=== PATIENT | male | born 1980 | race Caucasian/White ===

== ENCOUNTER 2017-01-10 13:30 | Outpatient (CLI) | payer MEDICARE, MEDICAID | END 2017-01-10 13:31 | disposition home or self-care (01) | DX: G47.30 Sleep apnea, unspecified (principal); G47.8 Other sleep disorders; R06.83 Snoring; G47.10 Hypersomnia, unspecified | CPT/HCPCS: 99203; G0463 ==

== ENCOUNTER 2017-01-21 21:47 | Outpatient (CLI) | payer MEDICARE, MEDICAID | END 2017-01-21 21:48 | disposition home or self-care (01) | DX: G47.33 Obstructive sleep apnea (adult) (pediatric) (principal); G47.61 Periodic limb movement disorder; Z68.31 Body mass index [BMI] 31.0-31.9, adult ==

== ENCOUNTER 2017-01-31 13:00 | Outpatient (CLI) | payer MEDICARE, MEDICAID | END 2017-01-31 13:01 | disposition home or self-care (01) | DX: G47.33 Obstructive sleep apnea (adult) (pediatric) (principal) | CPT/HCPCS: 99213; G0463 ==

== ENCOUNTER 2017-02-08 19:40 | Outpatient (CLI) | payer MEDICARE, MEDICAID | END 2017-02-08 19:41 | disposition home or self-care (01) | DX: G47.33 Obstructive sleep apnea (adult) (pediatric) (principal); G47.61 Periodic limb movement disorder ==

== ENCOUNTER 2017-02-22 08:40 | Outpatient (CLI) | payer MEDICARE, MEDICAID | END 2017-02-22 08:41 | disposition home or self-care (01) | DX: G47.33 Obstructive sleep apnea (adult) (pediatric) (principal) | CPT/HCPCS: 99213; G0463 ==

== ENCOUNTER 2017-03-17 10:48 | Outpatient (CLI) | payer MEDICARE, MEDICAID | END 2017-03-17 10:49 | disposition home or self-care (01) | DX: G47.33 Obstructive sleep apnea (adult) (pediatric) (principal) | CPT/HCPCS: 99215; G0463 ==

== ENCOUNTER 2017-04-27 10:45 | Outpatient (CLI) | payer MEDICARE, MEDICAID | END 2017-04-27 10:46 | disposition home or self-care (01) | LOC: SC 10:45 | PROVIDERS: ATTEND Nurse Practitioner Family | DX: G47.33 Obstructive sleep apnea (adult) (pediatric) (principal) | CPT/HCPCS: 99214; G0463; 99212 ==

== ENCOUNTER 2017-08-01 09:51 | Outpatient (CLI) | payer MEDICARE, MEDICAID | END 2017-08-01 09:52 | disposition home or self-care (01) | LOC: SC 09:51 | PROVIDERS: ATTEND Nurse Practitioner Family | DX: G47.33 Obstructive sleep apnea (adult) (pediatric) (principal) | CPT/HCPCS: 99214; G0463; 99212 ==

== ENCOUNTER 2017-11-03 14:11 | Outpatient (CLI) | payer MEDICARE, MEDICAID ==
[2017-11-03 14:42] LABS: ALBUMIN/GLOBULIN RATIO 1.2 (1.0-2.2); BILIRUBIN,TOTAL 0.8 mg/dL (0.2-1.0); BUN - BLOOD UREA NITROGEN 15 mg/dL (6-20); CALCIUM 9.7 mg/dL (8.5-10.3); CARBON DIOXIDE - CO2 26 mmol/L (21-32); CHLORIDE 104 mmol/L (101-111); CREATININE 0.9 mg/dL (0.6-1.2); GFR - MDRD 94 (>89); GLUCOSE 92 mg/dL (70-100); POTASSIUM 3.8 mmol/L (3.5-5.0); SODIUM 138 mmol/L (135-145); TOTAL PROTEIN 8.4 g/dL (6.7-8.2)
== END 2017-11-03 14:12 | disposition home or self-care (01) ==
LOC: LAB.WCP 14:11
PROVIDERS: ATTEND Family Medicine
DX: G40.909 Epilepsy, unspecified, not intractable, without status epilepticus (principal); F41.9 Anxiety disorder, unspecified; R61 Generalized hyperhidrosis; R51 Headache
CPT/HCPCS: 36415; 80053; 80175; 84443

== ENCOUNTER 2018-02-28 10:12 | Outpatient (CLI) | payer MEDICARE, MEDICAID | END 2018-02-28 10:13 | disposition home or self-care (01) | LOC: SC 10:12 | PROVIDERS: ATTEND Internal Medicine Pulmonary Disease | DX: G47.33 Obstructive sleep apnea (adult) (pediatric) (principal) | CPT/HCPCS: 99213; G0463; 99212 ==

== ENCOUNTER 2018-10-17 09:17 | Outpatient (CLI) | payer MEDICARE, MEDICAID ==
[2018-10-17 12:51] LABS: CALCIUM 9.5 mg/dL (8.5-10.3); CREATININE 0.8 mg/dL (0.6-1.2)
== END 2018-10-17 23:59 | disposition home or self-care (01) ==
LOC: LAB.WCP 09:17
PROVIDERS: ATTEND Family Medicine
DX: R51 Headache (principal)
CPT/HCPCS: 36415; 80048

== ENCOUNTER 2019-01-19 08:00 | Outpatient (CLI) | payer MEDICARE, MEDICAID ==
[2019-01-19 12:58] LABS: BASOPHILS # (AUTO) 0.1 10^3/uL (0.0-0.1); BASOPHILS % (AUTO) 0.8 %; EOSINOPHILS # (AUTO) 0.3 10^3/uL (0.0-0.7); EOSINOPHILS % (AUTO) 4.5 %; HGB - HEMOGLOBIN 14.6 g/dL (14.0-18.0); LYMPHOCYTES # (AUTO) 2.4 10^3/uL (1.5-3.5); LYMPHOCYTES % (AUTO) 34.2 %; MEAN CORPUSCULAR HEMOGLOBIN 31.1 pg (27.0-31.0); MEAN CORPUSCULAR HGB CONC 33.3 g/dL (32.0-36.0); MEAN CORPUSCULAR VOLUME 93.3 fL (80.0-94.0); MEAN PLATELET VOLUME 8.6 fL (7.4-11.4); MONOCYTES # (AUTO) 0.6 10^3/uL (0.0-1.0); MONOCYTES % (AUTO) 8.4 %; NEUTROPHILS # (AUTO) 3.6 10^3/uL (1.5-6.6); NEUTROPHILS % (AUTO) 52.1 %; PLT - PLATELET COUNT 416 10^3/uL (130-450); RED BLOOD COUNT 4.71 10^6/uL (4.70-6.10); RED CELL DISTRIBUTION WIDTH 13.4 % (12.0-15.0); WHITE BLOOD COUNT 6.9 x10^3/uL (4.8-10.8)
[2019-01-19 13:14] LABS: ALBUMIN 4.2 g/dL (3.2-5.5); ALBUMIN/GLOBULIN RATIO 1.3 (1.0-2.2); ALKALINE PHOSPHATASE 45 IU/L (42-121); ALT ALANINE AMINOTRANSFERASE 39 IU/L (10-60); AST ASPARTATE AMINOTRANSFERASE 26 IU/L (10-42); BILIRUBIN,TOTAL 1.1 mg/dL (0.2-1.0); BUN - BLOOD UREA NITROGEN 14 mg/dL (6-20); CALCIUM 9.1 mg/dL (8.5-10.3); CARBON DIOXIDE - CO2 26 mmol/L (21-32); CHLORIDE 104 mmol/L (101-111); CHOLESTEROL 179 mg/dL; CREATININE 0.8 mg/dL (0.6-1.2); GFR - MDRD 108 (>89); GLUCOSE 106 mg/dL (70-100); SODIUM 140 mmol/L (135-145); TOTAL PROTEIN 7.5 g/dL (6.7-8.2)
== END 2019-01-19 23:59 | disposition home or self-care (01) ==
LOC: LAB.WCP 08:00
PROVIDERS: ATTEND Family Medicine
DX: Z00.00 Encounter for general adult medical examination without abnormal findings (principal); R56.9 Unspecified convulsions
CPT/HCPCS: 36415; 80053; 80175; 82465; 84443; 85025

== ENCOUNTER 2019-02-28 09:19 | Outpatient (CLI) | payer MEDICARE, MEDICAID | END 2019-02-28 09:20 | disposition home or self-care (01) | LOC: SC 09:19 | PROVIDERS: ATTEND Nurse Practitioner Family | DX: G47.33 Obstructive sleep apnea (adult) (pediatric) (principal); G47.00 Insomnia, unspecified | CPT/HCPCS: 99214; G0463; 99212 ==

== ENCOUNTER 2019-03-10 19:13 | Emergency (ER) | payer MEDICARE, MEDICAID ==
[2019-03-10 19:20] VITALS: BP 142/78
[2019-03-10] MEDS ORDERED: oxyCODONE 5 MG TABLET PO STA (19:30)
--- NOTE | 2019-03-10 19:32 | ED Physician Documentation ---
PD HPI UPPER EXT INJURY - Stated complaint Stated Complaint: RT ARM PX - Chief complaint Chief Complaint: Ext Problem - History obtained from History obtained from: Patient - History of Present Illness Location: Right (38-year-old gentleman who 17 years ago was equal accident with multiple orthopedic injuries as well as a head injury and craniotomies. He has hardware in the forearm on the right and a known fusion of the radius and ulna there on prior imaging. About a month ago he was doing some work around the house moving a lot of things and since then has had pain from the dorsal wrist up to the elbow especially with motion that is keeping him up at night despite taking NSAIDs. There is no specific injury or moments where he was injured, more gradual overuse kind of thing.) Review of Systems Constitutional: reports: Reviewed and negative Nose: reports: Reviewed and negative Throat: reports: Reviewed and negative PD PAST MEDICAL HISTORY - Past Medical History Psych: Post traumatic stress disorder - Past Surgical History Past Surgical History: Yes Ortho: Other - Present Medications Home Medications: Ambulatory Orders Medication Instructions Recorded Confirmed Ascorbic Acid [Vitamin C] 1 tab PO DAILY 07/28/16 03/10/19 Pnv with Ca,No.72/Iron,Carb/FA 1 tab PO DAILY 07/28/16 03/10/19 [ Plus Iron Tablet] lamoTRIgine [LaMICtal] 200 mg PO BID 07/28/16 03/10/19 Desvenlafaxine Succinate [Pristiq] 25 mg ORAL DAILY 03/10/19 03/10/19 Oxycodone HCl/Acetaminophen 1 - 2 each PO Q6H PRN #14 tablet 03/10/19 [Percocet 5-325 mg Tablet] - Allergies Allergies/Adverse Reactions: Allergies Allergy/AdvReac Type Severity Reaction Status Date / Time acetaminophen [From Vicodin] AdvReac Hallucinati Verified 03/10/19 19:20 ons hydrocodone bitartrate * AdvReac Hallucinati Verified 03/10/19 19:20 [From Vicodin] ons - Social History Does the pt smoke?: No Smoking Status: Never smoker Does the pt drink ETOH?: No Does the pt have substance abuse?: No - Immunizations Immunizations are current?: Yes PD ED PE NORMAL - Vitals Vital signs reviewed: Yes - General General: Alert and oriented X 3, No acute distress - Extremities Extremities: Other (Is really unable to pronate his wrist but he says that is chronic. Flexion extension is relatively painless. There is some tenderness along the radial side of the forearm without swelling. 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 A month ago he did some heavy labor around the house and increased pain. His examination is relatively unremarkable and his x-rays without change. He is placed in a Velcro wrist splint and given some pain medication and advised to follow-up with orthopedics if not better after a short course of watchful waiting and rest. Departure - Departure Disposition: 01 Home, Self Care Clinical Impression: Pain in extremity Qualifiers: Extremity pain location: upper extremity Laterality: right Qualified Code(s): M79.601 - Pain in right arm Condition: Good Record reviewed to determine appropriate education?: Yes Instructions: ED Sprain Wrist, ED Splint Care Velcro Follow-Up: [facility] [Provider Group] - Within 1 week Prescriptions: Oxycodone HCl/Acetaminophen [Percocet 5-325 mg Tablet] 1 - 2 each PO Q6H PRN #14 tablet PRN Reason: pain Comments: Your blood pressure was elevated today on check into the emergency department. This does not mean that you have hypertension, it is a common phenomenon to come to the emergency department and have elevated blood pressure. I recommend that you see your primary care physician within the week to have it rechecked when you are feeling better. Do not drink or drive while taking narcotic pain medication. Note that many narcotic pain relievers also contain Tylenol/acetaminophen. Please ensure that your total dose of acetaminophen from all sources does not exceed 3 g (3000 mg) per day. You may get constipated while on this medication. Take a stool softener such as Colace twice a day while you are on it. Also add an lwzo-pqa-[id number] laxative such as senna or MiraLAX on any day that you do not have a bowel movement. If you received a narcotic pain medication or sedative while in the emergency department, do not drive for the next 24 hours.
--- NOTE | 2019-03-10 20:13 | XRAY Report ---
Reason: arm pain, knwon fusion Procedure Date: 03/10/2019 Accession Number: [id number] / [id number] Procedure: XR - Forearm RT CPT Code: FULL RESULT: EXAM: RIGHT FOREARM RADIOGRAPHY EXAM DATE: 03/10/2019 07:41 PM. CLINICAL HISTORY: Arm pain, known fusion. COMPARISON: FOREARM RT 01/01/2015 11:43 AM. TECHNIQUE: 2 views. FINDINGS: Distal volar plate and screws for open reduction internal fixation of the right distal radial and ulnar diaphyseal fractures with inter-radial and ulnar osseous fusion. No evidence for loosening. No evidence for acute fracture. No acute bone findings are seen. No subluxation. No elbow joint effusion. IMPRESSION: No acute findings are seen. See above. RADIA
== END 2019-03-10 20:36 | disposition home or self-care (01) ==
LOC: ED 19:13
DX: M79.601 Pain in right arm (principal)
CPT/HCPCS: 73090; 99283; A9270

== ENCOUNTER 2020-05-05 15:19 | Outpatient (CLI) | payer MEDICARE, MEDICAID ==
--- NOTE | 2020-05-05 15:53 | SLEEP CARE CONSULTATION ---
Information from patient questionnaire entered by Isaura Fortune. I have reviewed and concur with the information entered by Isaura Fortune. This document represents the service I personally performed and the decisions made by me, Basilia Garcia, RN, MSN, INFORMATION SERVICES TECH. History of Present Illness Service Date and Time: 05/05/2020 1519 Previous diagnosis: Severe, Obstructive Sleep Apnea-Hypopnea Syndrome AHI: 33.3 (in 2017) Reason for follow up: annual (last seen 2018) Equipment type: CPAP Equipment obtained from: [employer] (having difficulty getting correct supplies / his mother tried ordering today/ no transfer at this time.) Mask style: Nasal pillows Mask brand: Respironics Backup mask available: No (keep current mask when replaced for spare ) Last cushion change: a month ago Prior sleep studies: Yes Year and Where: 2016 - [facility] Type of Sleep Study: Polysomnography HPI additional information: Increase in headaches , CT completed and sees Dr Garber May 21. CPAP Compliance Data - Data Reviewed with Patient Average duration of nightly device use: 6.2 Compliance rate %: 70 (180 days) Current pressure setting (cmH2O): 13-15 Humidity settin Heated hose settin Average residual AHI: 3.0 Average large leak: 3 min 19 sec Subjective Patient concerns: reports: air blowing in eyes, nasal congestion (nasal congestion for first hour of waking only. no interferring with CPAP / uses saline spray prior to CPAP ), dry mouth, nose, throat (24/7 not worse with CPAP. Uses oral dryness spray from dentist/ ), epistaxis (none as long as he uses the humidifier with water. ). denies: aerophagia, mask discomfort (headgear 8 months / occasional / repositions headgear. ), mask leak noise, condensation in mask/hose Observed to snore while using device: No Current pressure setting perceived as: comfortable On therapy, patient: reports: sleeping better, awakening more refreshed, being more awake and alert during the day, more rested overall. denies: drowsiness while driving Initial [place] Sleepiness Scale score: 13 (in 2017) Current [place] Sleepiness Scale score: 14 Allergies and Home Medications Home medication list reviewed: No (bupropion 450mg daily replaced the prestiq. ) Review of Systems Review of systems same as previous: No (Removal ulnar hardware due to swelling and resolved/ gum grafting done ) Physical Exam Blood Pressure: 114/68 Cuff size: long Heart Rate: 102 O2 Saturation: 98 Height: 6 ft 1 in Weight: 230 lb (lost 45 pounds) Body Mass Index: 30.3 BMI Classification: Obese Impression and Plan 1. Obstructive Sleep Apnea-Hypopnea Syndrome, severe, with good treatment compliance and good apnea control. On CPAP therapy, the patient has better sleep quality and is more rested overall. Rare condensation in hose so a heated hose will be ordered to use as needed to reduce condensation. Humidity is at maximum for oral dryness and he is working with dentist on treatment. His oral dryness is 24/7 from seizure medications. His epitaxis has resolved with use of nightly humidity. If continued problems getting correct supplies, he can transfer to another company and my staff will inform him of choices and I will make a prescription if needed. This has to be done within 6 months of being seen. He is hoping this last order will be correct that was completed by his mother. Since he is losing more weight, I discussed how continued weight loss can reduce his apnea and his CPAP pressure. Symptoms to report discussed for CPAP pressure adjustment. Patient's apnea severity and rationale for treatment to reduce apnea, improve sleep quality and reduce cardiovascular and cerebrovascular events was reviewed. * Continue auto CPAP pressure at 13-15 cmH2O * heated hose * Notify me if snoring with mask or feeling that the pressure is too much or too little * Attempt to lose weight * Call this office if any problems using CPAP * Return for follow up in 1 year , or sooner if concerns arise Visit Type: In Office Provider Statement: I spent 100% of the Face to Face Visit with the patient with greater than 50% spent counseling the patient and coordination of care.
[2020-05-05 15:54] VITALS: BP 114/68
== END 2020-05-05 15:20 | disposition home or self-care (01) ==
LOC: SC 15:19
PROVIDERS: ATTEND Nurse Practitioner Family
DX: G47.33 Obstructive sleep apnea (adult) (pediatric) (principal); E66.9 Obesity, unspecified; Z68.30 Body mass index [BMI] 30.0-30.9, adult
CPT/HCPCS: 99214; G0463; 99212

== ENCOUNTER 2020-06-30 08:00 | Outpatient (CLI) | payer MEDICARE, MEDICAID ==
[2020-06-30 12:10] LABS: BASOPHILS # (AUTO) 0.1 10^3/uL (0.0-0.1); BASOPHILS % (AUTO) 0.7 %; EOSINOPHILS # (AUTO) 0.3 10^3/uL (0.0-0.7); EOSINOPHILS % (AUTO) 3.2 %; HGB - HEMOGLOBIN 15.1 g/dL (14.0-18.0); LYMPHOCYTES # (AUTO) 2.9 10^3/uL (1.5-3.5); LYMPHOCYTES % (AUTO) 36.3 %; MEAN CORPUSCULAR HEMOGLOBIN 32.1 pg (27.0-31.0); MEAN CORPUSCULAR HGB CONC 33.6 g/dL (32.0-36.0); MEAN CORPUSCULAR VOLUME 95.3 fL (80.0-94.0); MEAN PLATELET VOLUME 9.9 fL (7.4-11.4); MONOCYTES # (AUTO) 0.7 10^3/uL (0.0-1.0); MONOCYTES % (AUTO) 8.4 %; NEUTROPHILS # (AUTO) 4.1 10^3/uL (1.5-6.6); PLT - PLATELET COUNT 397 10^3/uL (130-450); RED BLOOD COUNT 4.71 10^6/uL (4.70-6.10); RED CELL DISTRIBUTION WIDTH 12.7 % (12.0-15.0); WHITE BLOOD COUNT 8.1 x10^3/uL (4.8-10.8)
[2020-06-30 12:50] LABS: ALBUMIN 4.7 g/dL (3.2-5.5); ALBUMIN/GLOBULIN RATIO 1.7 (1.0-2.2); ALKALINE PHOSPHATASE 40 IU/L (42-121); ALT ALANINE AMINOTRANSFERASE 34 IU/L (10-60); AST ASPARTATE AMINOTRANSFERASE 20 IU/L (10-42); BUN - BLOOD UREA NITROGEN 12 mg/dL (6-20); CALCIUM 9.7 mg/dL (8.5-10.3); CARBON DIOXIDE - CO2 28 mmol/L (21-32); CHLORIDE 103 mmol/L (101-111); CHOL/HDL RATIO 5.7 (<5.0); CHOLESTEROL 193 mg/dL; GLUCOSE 96 mg/dL (70-100); HDL CHOLESTEROL 34 mg/dL; LDL CHOLESTEROL,CALCULATED 125 mg/dL; LDL/HDL RATIO 3.7 (<3.6); SODIUM 140 mmol/L (135-145); TOTAL PROTEIN 7.5 g/dL (6.7-8.2); VLDL CHOLESTEROL 34 mg/dL
== END 2020-06-30 23:59 | disposition home or self-care (01) ==
LOC: LAB.WCP 08:00
PROVIDERS: ATTEND Family Medicine
DX: R42 Dizziness and giddiness (principal); E66.9 Obesity, unspecified; F41.9 Anxiety disorder, unspecified; G43.909 Migraine, unspecified, not intractable, without status migrainosus
CPT/HCPCS: 36415; 80053; 80061; 83721; 84443; 85025

== ENCOUNTER 2020-11-27 07:58 | Outpatient (CLI) | payer MEDICARE, MEDICAID ==
--- NOTE | 2020-11-27 08:55 | SLEEP CARE CONSULTATION ---
Information from patient questionnaire entered by Isaura Fortune. I have reviewed and concur with the information entered by Isaura Fortune. This document represents the service I personally performed and the decisions made by me, Talisha Oneill ARNP. History of Present Illness Service Date and Time: 11/27/2020 0758 Previous diagnosis: Severe, Obstructive Sleep Apnea-Hypopnea Syndrome AHI: 33.3 (in 2017) Reason for follow up: other (7 month) Equipment type: CPAP Equipment obtained from: [employer] (gets supplies but gets broken items that are replaced right away) Mask style: Nasal pillows (Nuance) Backup mask available: No (will keep mask once replacement recieved) Last cushion change: 2 weeks Prior sleep studies: Yes Year and Where: 2017 - [facility] HPI additional information: ALEJANDRA DON was diagnosed to have severe, AHI 33.3, obstructive sleep apnea- hypopnea syndrome and returned today for CPAP therapy seven month (mask issues) follow-up. CPAP Compliance Data - Data Reviewed with Patient Average duration of nightly device use: 5 hr 37 min Compliance rate %: 47.8 (180 days) Current pressure setting (cmH2O): 11-15 Humidity settin Heated hose settin Average residual AHI: 3.2 Average large leak: 5 min 52 sec Subjective Missed days of use due to: reports: mask issues, other (surgery on right foot) Patient concerns: reports: mask discomfort, air blowing in eyes, mask leak noise, dry mouth, nose, throat (from medication he takes). denies: aerophagia (comfortable but leaking), condensation in mask/hose, nasal congestion, epistaxis (none for last 5 months), other Observed to snore while using device: No Current pressure setting perceived as: comfortable On therapy, patient: reports: sleeping better, awakening more refreshed, being more awake and alert during the day, more rested overall. denies: drowsiness while driving Initial [place] Sleepiness Scale score: 13 (in 2017) Current [place] Sleepiness Scale score: 8 Allergies and Home Medications Drug allergies reviewed: Yes (acetaminophen, hydrocodone ) Home medication list reviewed: Yes (stopped bupropion) Review of Systems Review of systems same as previous: Yes (no changes) Physical Exam Heart Rate: 103 O2 Saturation: 99 Height: 6 ft 1 in Weight: 228 lb Weight change since last visit: 2 lb loss Body Mass Index: 30.0 BMI Classification: Obese Impression and Plan 1. Obstructive Sleep Apnea-Hypopnea Syndrome, severe, with poor treatment compliance and good apnea control. On CPAP therapy, the patient has better sleep quality and is more rested overall. He has been having issues with the nasal pillows mask moving around on face causing air leaking into eyes and mask leak noises. He states he moves a lot when he sleeps and the pillow become dislodged. He states it has been this way since he lost some significant weight but was unable to come in to discuss issue because he had surgery with long recovery on his foot. He states he used to use the Wisp style mask, small, but stopped when he got some skin irritation on the top of his nose. He thinks he slept much better and was more able to keep the mask on than the nasal pillows mask he has been using. I will write for him to try the nasal Wisp style mask again. He states that he stopped the heated hose that was recommended at last visit bec ause he was getting bloody noses regularly. He states that with the change to the regular hose he does not get any bloody noses and oral dryness has improved. He has not used it for the last 5 months. I will have him continue with current settings since they are working well without condensation buildup. I will have him follow up in about 2 months to recheck compliance and how the new mask is working. Patient voiced understanding and agreement for plan. Patient's apnea severity and rationale for treatment to reduce apnea, improve sleep quality and reduce cardiovascular and cerebrovascular events was reviewed. I also reviewed the benefit of consistent device use of CPAP for depression. * Continue auto CPAP pressure at 13-15 cmH2O * Change to Dream Wisp mask and update supplies * Notify me if snoring with mask or feeling that the pressure is too much or too little * Continue to lose weight * Call this office if any problems using CPAP * Return for follow up in 1-2 months , or sooner if concerns arise Counseling Topics: Spare mask, Weight loss health impact Visit Type: In Office Time Spent with Patient (minutes): 29 Provider Statement: I spent 100% of the Face to Face Visit with the patient with greater than 50% spent counseling the patient and coordination of care.
== END 2020-11-27 07:59 | disposition home or self-care (01) ==
LOC: SC 07:58
PROVIDERS: ATTEND Nurse Practitioner Family
DX: G47.33 Obstructive sleep apnea (adult) (pediatric) (principal); E66.9 Obesity, unspecified; Z68.30 Body mass index [BMI] 30.0-30.9, adult
CPT/HCPCS: 99213; G0463; 99212

== ENCOUNTER 2021-05-13 10:12 | Outpatient (CLI) | payer MEDICARE, MEDICAID ==
--- NOTE | 2021-05-13 11:06 | SLEEP CARE CONSULTATION ---
Information from patient questionnaire entered by Isaura Fortune. I have reviewed and concur with the information entered by Isaura Fortune. This document represents the service I personally performed and the decisions made by , Talisha Oneill ARNP. History of Present Illness Service Date and Time: 05/13/2021 1012 Previous diagnosis: Severe, Obstructive Sleep Apnea-Hypopnea Syndrome AHI: 33.3 (in 2017) Reason for follow up: other (5 month) Equipment type: CPAP Equipment obtained from: [employer] (getting supplies as needed) Mask style: Nasal pillows Mask brand: Respironics (Nuance) Backup mask available: No (will keep old mask when replaced) Last cushion change: 2 weeks ago Prior sleep studies: Yes Year and Where: 2017 - [facility] HPI additional information: ALEJANDRA DON was diagnosed to have severe, AHI 33.3, obstructive sleep apnea- hypopnea syndrome and returned today for CPAP therapy five month follow-up. CPAP Compliance Data - Data Reviewed with Patient Average duration of nightly device use: 4 hr 8 min Compliance rate %: 8.7 (150 days) Current pressure setting (cmH2O): 11-15 Humidity settin Heated hose settin Average residual AHI: 3.7 Average large leak: 1 min 21 sec Subjective Missed days of use due to: reports: mask issues, illness, travel Patient concerns: reports: mask discomfort, air blowing in eyes, mask leak noise, condensation in mask/hose, nasal congestion, dry mouth, nose, throat, epistaxis, other (headache). denies: aerophagia Observed to snore while using device: No Current pressure setting perceived as: comfortable On therapy, patient: reports: sleeping better, awakening more refreshed, being more awake and alert during the day, more rested overall. denies: drowsiness while driving Initial [place] Sleepiness Scale score: 13 (in 2017) Current [place] Sleepiness Scale score: 12 Allergies and Home Medications Home medication list reviewed: Yes Allergy and home medication list: Cymbalta Gabapentin Review of Systems Review of systems same as previous: Yes (no changes) Physical Exam O2 Saturation: 98 Height: 6 ft 1 in Weight: 237 lb Body Mass Index: 31.2 BMI Classification: Obese Impression and Plan 1. Obstructive Sleep Apnea-Hypopnea Syndrome, severe, with poor treatment compliance and good apnea control. On CPAP therapy, the patient has better sleep quality and is more rested overall. He tried an over the nose Wisp style mask but it caused soreness on the bridge of his nose. He is back using a nasal cushion mask the Nuance that he still gets some air leaking into his eyes. He is partially blind and has other eye issues and does not want to have anymore. He asked for suggestion and after review I think he would do well with a ResMed N30. He will call his DME and order this style mask to see if it will work for him. I also discussed with him the [employer] recall and he wishes to continue use of his CPAP machine and will put his machine on a [employer] website to see if he is machine is on the recall. Patient compliance has been reduced due to mask issues. Compliance guidelines reviewed for insurance coverage. Patient was counseled on the difference between meeting compliance and optimal use of CPAP. Optimal use of CPAP is use of CPAP with all sleep to obtain maximum benefit of treatment. Patient is encouraged to use CPAP with all sleep. Patient's apnea severity and rationale for treatment to reduce apnea, improve sleep quality and reduce cardiovascular and cerebrovascular events was reviewed. * Continue auto CPAP pressure at 11-15 cmH2O * Try ResMed N 30 mask * Notify me if snoring with mask or feeling that the pressure is too much or too little * Attempt to lose weight * Call this office if any problems using CPAP * Return for follow up in 1-2 months, or sooner if concerns arise Counseling Topics: Spare mask, Weight loss health impact Visit Type: In Office Time Spent with Patient (minutes): 29 Provider Statement: I spent 100% of the Face to Face Visit with the patient with greater than 50% spent counseling the patient and coordination of care.
== END 2021-05-13 10:13 | disposition home or self-care (01) ==
LOC: SC 10:12
PROVIDERS: ATTEND Nurse Practitioner Family
DX: G47.33 Obstructive sleep apnea (adult) (pediatric) (principal); E66.9 Obesity, unspecified; Z68.31 Body mass index [BMI] 31.0-31.9, adult
CPT/HCPCS: 99213; G0463; 99212

== ENCOUNTER 2021-07-15 07:52 | Outpatient (CLI) | payer MEDICARE, MEDICAID ==
--- NOTE | 2021-07-15 08:28 | SLEEP CARE CONSULTATION ---
Information from patient questionnaire entered by Isaura Fortune. I have reviewed and concur with the information entered by Isaura Fortune. This document represents the service I personally performed and the decisions made by , Talisha Oneill ARNP. History of Present Illness Service Date and Time: 07/15/2021 0752 Previous diagnosis: Severe, Obstructive Sleep Apnea-Hypopnea Syndrome AHI: 33.3 (in 2017) Reason for follow up: other (2 month) Equipment type: CPAP Equipment obtained from: [employer] (getting supplies as needed) Mask style: Nasal (Airfit N30i) Mask brand: Resmed Backup mask available: Yes (other mask) Last cushion change: 1 month Prior sleep studies: Yes Year and Where: 2017 - [facility] HPI additional information: ALEJANDRA DON was diagnosed to have severe, AHI 33.3, obstructive sleep apnea- hypopnea syndrome and returned today for CPAP therapy two month follow-up. CPAP Compliance Data - Data Reviewed with Patient Average duration of nightly device use: 4 hr 2 min Compliance rate %: 20 Current pressure setting (cmH2O): 11-15 Humidity settin Heated hose settin Average residual AHI: 3.4 Average large leak: 2 min 12 sec Subjective Missed days of use due to: reports: other (not knowing how to use mask) Patient concerns: reports: air blowing in eyes, mask leak noise, dry mouth, nose, throat (chronic dryness from seizure medication). denies: aerophagia, mask discomfort, condensation in mask/hose, nasal congestion, epistaxis, other Observed to snore while using device: No Current pressure setting perceived as: comfortable On therapy, patient: reports: sleeping better, awakening more refreshed, being more awake and alert during the day, more rested overall. denies: drowsiness while driving Initial [place] Sleepiness Scale score: 13 (in 2017) Current [place] Sleepiness Scale score: 8 Allergies and Home Medications Home medication list reviewed: Yes (no changes) Review of Systems Review of systems same as previous: Yes (no changes) Physical Exam Vital signs obtained and entered by: steve Heart Rate: 84 O2 Saturation: 99 Height: 6 ft 1 in Weight: 241 lb Body Mass Index: 31.8 BMI Classification: Obese Impression and Plan 1. Obstructive Sleep Apnea-Hypopnea Syndrome, severe, with poor treatment compliance and god apnea control. On CPAP therapy, the patient has better sleep quality and is more rested overall. Patient's compliance has come up over 10% since his last visit. He received his new AirFit N 30i mask and has been trying to figure out how to use it. 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 He states he finally figured out how to wear the mask appropriately and he feels the small size fits the best with less leaking into his eyes. His compliance in the last 60 days was 10% and 20% in last 30 days. Compliance guidelines reviewed for insurance coverage. Patient was counseled on the difference between meeting compliance and optimal use of CPAP. Optimal use of CPAP is use of CPAP with all sleep to obtain maximum benefit of treatment. Patient is encouraged to use CPAP with all sleep. Patient was encouraged to lose weight for their overall health and to reduce apneas. Patient's apnea severity and rationale for treatment to reduce apnea, improve sleep quality and reduce cardiovascular and cerebrovascular events was reviewed. * Continue auto CPAP pressure at 11-15 cmH2O * Notify me if snoring with mask or feeling that the pressure is too much or too little * Attempt to lose weight * Call this office if any problems using CPAP * Return for follow up in 1-2 months to recheck compliance, or sooner if concerns arise Counseling Topics: Spare mask, Weight loss health impact Visit Type: In Office Time Spent with Patient (minutes): 24 Provider Statement: I spent 100% of the Face to Face Visit with the patient with greater than 50% spent counseling the patient and coordination of care.
== END 2021-07-15 07:53 | disposition home or self-care (01) ==
LOC: SC 07:52
PROVIDERS: ATTEND Nurse Practitioner Family
DX: G47.33 Obstructive sleep apnea (adult) (pediatric) (principal); E66.9 Obesity, unspecified; Z68.31 Body mass index [BMI] 31.0-31.9, adult
CPT/HCPCS: 99213; G0463; 99212

== ENCOUNTER 2021-08-25 07:11 | Outpatient (CLI) | payer MEDICARE, MEDICAID ==
[2021-08-25 12:13] LABS: BASOPHILS # (AUTO) 0.1 10^3/uL (0.0-0.1); BASOPHILS % (AUTO) 0.9 %; EOSINOPHILS # (AUTO) 0.5 10^3/uL (0.0-0.7); EOSINOPHILS % (AUTO) 5.9 %; HGB - HEMOGLOBIN 15.4 g/dL (14.0-18.0); LYMPHOCYTES # (AUTO) 3.4 10^3/uL (1.5-3.5); MEAN CORPUSCULAR HEMOGLOBIN 31.2 pg (27.0-31.0); MEAN CORPUSCULAR HGB CONC 32.8 g/dL (32.0-36.0); MEAN CORPUSCULAR VOLUME 95.3 fL (80.0-94.0); MEAN PLATELET VOLUME 10.2 fL (7.4-11.4); MONOCYTES # (AUTO) 0.8 10^3/uL (0.0-1.0); NEUTROPHILS # (AUTO) 3.4 10^3/uL (1.5-6.6); NEUTROPHILS % (AUTO) 41.1 %; PLT - PLATELET COUNT 446 10^3/uL (130-450); RED BLOOD COUNT 4.93 10^6/uL (4.70-6.10); RED CELL DISTRIBUTION WIDTH 13.1 % (12.0-15.0); WHITE BLOOD COUNT 8.2 x10^3/uL (4.8-10.8)
[2021-08-25 12:38] LABS: THYROID STIMULATING HORMONE 1.26 uIU/mL (0.34-5.60)
[2021-08-25 13:06] LABS: ALBUMIN 4.2 g/dL (3.2-5.5); ALBUMIN/GLOBULIN RATIO 1.1 (1.0-2.2); ALKALINE PHOSPHATASE 42 IU/L (42-121); ALT ALANINE AMINOTRANSFERASE 44 IU/L (10-60); AST ASPARTATE AMINOTRANSFERASE 22 IU/L (10-42); BILIRUBIN,TOTAL 0.9 mg/dL (0.2-1.0); BUN - BLOOD UREA NITROGEN 13 mg/dL (6-20); CHOL/HDL RATIO 6.5 (<5.0); CHOLESTEROL 227 mg/dL; CREATININE 0.9 mg/dL (0.6-1.2); GFR - MDRD 93 (>89); HDL CHOLESTEROL 35 mg/dL; LDL CHOLESTEROL,CALCULATED 144 mg/dL; LDL/HDL RATIO 4.1 (<3.6); TOTAL PROTEIN 7.9 g/dL (6.7-8.2); TRIGLYCERIDES 240 mg/dL; VLDL CHOLESTEROL 48 mg/dL
[2021-08-25 13:08] LABS: CALCIUM 9.7 mg/dL (8.5-10.3); CARBON DIOXIDE - CO2 25 mmol/L (21-32); CHLORIDE 107 mmol/L (101-111); GLUCOSE 104 mg/dL (70-100); POTASSIUM 3.9 mmol/L (3.5-5.0)
[2021-08-25 13:16] LABS: SODIUM 142 mmol/L (135-145)
== END 2021-08-25 23:59 | disposition home or self-care (01) ==
LOC: LAB.WCP 07:11
PROVIDERS: ATTEND Physician Assistant Medical
DX: Z00.00 Encounter for general adult medical examination without abnormal findings (principal); G40.909 Epilepsy, unspecified, not intractable, without status epilepticus; F32.9 Major depressive disorder, single episode, unspecified
CPT/HCPCS: 36415; 80053; 80061; 80175; 83721; 84443; 85025

== ENCOUNTER 2021-08-26 08:56 | Outpatient (CLI) | payer MEDICARE, MEDICAID ==
[2021-08-26 09:36] VITALS: BP 124/79
--- NOTE | 2021-08-26 09:36 | SLEEP CARE CONSULTATION ---
Information from patient questionnaire entered by Megan Bedolla. I have reviewed and concur with the information entered by Megan Bedolla. This document represents the service I personally performed and the decisions made by me, Talisha Oneill ARNP. History of Present Illness Service Date and Time: 08/26/2021 0856 Previous diagnosis: Severe, Obstructive Sleep Apnea-Hypopnea Syndrome AHI: 33.3 (in 2017) Reason for follow up: other (6 week) Equipment type: CPAP Equipment obtained from: [employer] (getting supplies as needed) Mask style: Nasal pillows (N30 mask but prefers the Nuance) Backup mask available: Yes (other mask) Last cushion change: not sure Prior sleep studies: Yes Year and Where: 2016 - [facility] HPI additional information: ALEJANDRA DON was diagnosed to have severe, AHI 33.3, obstructive sleep apnea- hypopnea syndrome and returned today for CPAP therapy 6 weeks follow-up. Sleep Study - Results Prior sleep studies: Yes Year and Where: 2017 - [facility] Compliance Data - Data Reviewed with Patient Average duration of nightly device use: 3 hours 56 minutes Compliance rate %: 16.7 Current pressure setting (cmH2O): 11-15 Humidity settin Heated hose settin Average residual AHI: 6.1 Average large leak: 22 seconds Subjective Missed days of use due to: reports: family emergency, mask issues, travel Patient concerns: reports: air blowing in eyes, mask leak noise, condensation in mask/hose (now using a heated hose), dry mouth, nose, throat (dry mouth, thinks it is from the Lamictal, always has dry mouth), other (headache). denies: aerophagia, mask discomfort, nasal congestion, epistaxis Observed to snore while using device: No Current pressure setting perceived as: comfortable On therapy, patient: reports: sleeping better, awakening more refreshed, being more awake and alert during the day, more rested overall. denies: drowsiness while driving Initial [place] Sleepiness Scale score: 13 (in 2017) Current [place] Sleepiness Scale score: 12 Allergies and Home Medications Home medication list reviewed: Yes (Topiramate for headaches, makes things taste funny) Review of Systems Review of systems same as previous: Yes (no changes) Physical Exam Blood Pressure: 124/79 Cuff size: wrist Heart Rate: 91 O2 Saturation: 98 Height: 6 ft 1 in Weight: 240 lb Weight change since last visit: 1 lb loss Body Mass Index: 31.6 BMI Classification: Obese Impression and Plan 1. Obstructive Sleep Apnea-Hypopnea Syndrome, severe, with poor treatment compliance and fair apnea control with mild elevation of residual AHI. On CPAP therapy, the patient has better sleep quality and is more rested overall. Patient states he watch TV at night and many times will fall asleep because he does watch TV in his bed. Other nights he has difficulty wearing the mask due to his anxieties or he will wake up finding that the mask is not on his face anymore. He had one night that it woke him up from a rattle sound from condensation in the tubing. He got a heated tubing hose on recommendation of his mother and states the sound has gone away. This incident did affect his ability to use the mask because it reminded him of a rattle that he heard when his grandfather . Compliance guidelines reviewed for insurance coverage. A handout will be given at check out. Patient was counseled on the difference between meeting compliance and optimal use of CPAP. Optimal use of CPAP is use of CPAP with all sleep to obtain maximum benefit of treatment. Patient is encouraged to use CPAP with all sleep. To prevent falling asleep without CPAP, patient advised to put on the mask when laying down in bed so he will not forget to put the mask on to sleep. Patient has lost a pound since his last visit. He states he broke up with his girlfriend who used to cook very good tasting meals and is starting to lose weight again. Patient was encouraged to lose weight for their overall health and to reduce apneas. Patient's apnea severity and rationale for treatment to reduce apnea, improve sleep quality and reduce cardiovascular and cerebrovascular events was reviewed. * Continue auto CPAP pressure at 11-15 cmH2O * Notify me if snoring with mask or feeling that the pressure is too much or too little * Attempt to lose weight * Call this office if any problems using CPAP * Return for follow up in 1-2 months, or sooner if concerns arise Counseling Topics: Spare mask, Weight loss health impact Visit Type: In Office Time Spent with Patient (minutes): 25 Provider Statement: I spent 100% of the Face to Face Visit with the patient with greater than 50% spent counseling the patient and coordination of care.
== END 2021-08-26 08:57 | disposition home or self-care (01) ==
LOC: SC 08:56
PROVIDERS: ATTEND Nurse Practitioner Family
DX: G47.33 Obstructive sleep apnea (adult) (pediatric) (principal); E66.9 Obesity, unspecified; Z68.31 Body mass index [BMI] 31.0-31.9, adult
CPT/HCPCS: 99213; G0463; 99212

== ENCOUNTER 2021-10-28 08:21 | Outpatient (CLI) | payer MEDICARE, MEDICAID ==
[2021-10-28 09:10] VITALS: BP 134/76
--- NOTE | 2021-10-28 09:11 | SLEEP CARE CONSULTATION ---
Information from patient questionnaire entered by Pooja Rosario MA. I have reviewed and concur with the information entered by Pooja Rosario MA. This document represents the service I personally performed and the decisions made by , Talisha Oneill ARNP. History of Present Illness Service Date and Time: 10/28/2021 08 Previous diagnosis: Severe, Obstructive Sleep Apnea-Hypopnea Syndrome AHI: 33.3 (in 2017) Reason for follow up: other (6 WEEK F/U ) Equipment type: CPAP Equipment obtained from: [employer] (getting supplies as needed) Mask style: Nasal pillows (N30 mask with small cushion) Backup mask available: No (will need to keep old mask when replaced) Last cushion change: 1 month Prior sleep studies: Yes Year and Where: 2016 [facility] HPI additional information: ALEJANDRA DON was diagnosed to have severe, AHI 33.3, obstructive sleep apnea- hypopnea syndrome and returned today for CPAP therapy 6 week with pressure change follow-up. Sleep Study - Results Prior sleep studies: Yes Year and Where: 2017 [facility] Compliance Data - Data Reviewed with Patient Average duration of nightly device use: 5 hours 37 minutes Compliance rate %: 66.7 Current pressure setting (cmH2O): 13-15 Humidity settin Heated hose settin Average residual AHI: 2.6 Average large leak: 2 mins 57 secs Subjective Missed days of use due to: reports: family emergency, illness, other (FALL ASLEEP EARLY) Patient concerns: denies: aerophagia, mask discomfort, air blowing in eyes, mask leak noise, condensation in mask/hose, nasal congestion, dry mouth, nose, throat, epistaxis, other Observed to snore while using device: No Current pressure setting perceived as: comfortable On therapy, patient: reports: sleeping better, awakening more refreshed, being more awake and alert during the day, more rested overall. denies: drowsiness while driving Initial [place] Sleepiness Scale score: 13 (in 2016) Current [place] Sleepiness Scale score: 8 (2020) Allergies and Home Medications Known drug allergies: Yes (VICADEN) Home medication list reviewed: Yes (Mirtazepine for nightmares for last month) Review of Systems Review of systems same as previous: Yes (no changes) Physical Exam Vital signs obtained and entered by: Jaime ROSARIO CMA, AAMA Blood Pressure: 134/76 (left) Cuff size: wrist Heart Rate: 95 O2 Saturation: 100 (with mask) Height: 6 ft 1 in Weight: 248 lb (with clothes) Weight change since last visit: 8 pound gain Body Mass Index: 32.7 BMI Classification: Obese Impression and Plan 1. Obstructive Sleep Apnea-Hypopnea Syndrome, severe, with fair treatment compliance and good apnea control. On CPAP therapy, the patient has better sleep quality and is more rested overall. Patient is happy with his N30 nasal mask. He states it is comfortable. He started a new medication about a month ago that helps him fall asleep and will occasionally fall asleep before he puts on the mask. He was advised to put on the mask soon after taking his mirtazepine and laying down so he will not forget. He voiced understanding. He is happy with current pressure and has significant improvement of his apneas. Patient's apnea severity and rationale for treatment to reduce apnea, improve sleep quality and reduce cardiovascular and cerebrovascular events was reviewed. Patient has gained weight. He states this is due to his fiance's good cooking. Currently patients BMI is 32.7. Obesity increases the risk of apnea, CPAP pressure requirements and overall health risks especially cardiovascular and diabetes. Patient was encouraged to lose weight for their overall health and to reduce apneas. * Continue auto CPAP pressure at 13-15 cmH2O * Notify me if snoring with mask or feeling that the pressure is too much or too little * Attempt to lose weight * Call this office if any problems using CPAP * Return for follow up in 3 months, or sooner if concerns arise Counseling Topics: Spare mask, Weight loss health impact Visit Type: In Office Time Spent with Patient (minutes): 21 Provider Statement: I spent 100% of the Face to Face Visit with the patient with greater than 50% spent counseling the patient and coordination of care.
== END 2021-10-28 08:22 | disposition home or self-care (01) ==
LOC: SC 08:21
PROVIDERS: ATTEND Nurse Practitioner Family
DX: G47.33 Obstructive sleep apnea (adult) (pediatric) (principal); E66.9 Obesity, unspecified; Z68.32 Body mass index [BMI] 32.0-32.9, adult
CPT/HCPCS: 99213; G0463; 99212

== ENCOUNTER 2022-02-03 09:16 | Outpatient (CLI) | payer MEDICARE, MEDICAID ==
--- NOTE | 2022-02-03 10:00 | SLEEP CARE CONSULTATION ---
Information from patient questionnaire entered by Pooja Senior MA. I have reviewed and concur with the information entered by Pooja Senior MA. This document represents the service I personally performed and the decisions made by , Talisha Oneill ARNP. History of Present Illness Service Date and Time: 02/03/2022 0916 Previous diagnosis: Severe, Obstructive Sleep Apnea-Hypopnea Syndrome AHI: 33.3 (in 2017) Reason for follow up: three month Equipment type: CPAP Equipment obtained from: [employer] (getting supplies as needed) Mask style: Nasal pillows (N30 mask but prefers the Nuance) Backup mask available: No (will need to keep old mask when replaced) Last cushion change: 2 weeks ago Prior sleep studies: Yes Year and Where: 2016 - [facility] Type of Sleep Study: Home sleep study HPI additional information: ALEJANDRA DON was diagnosed to have severe, AHI 33.3, obstructive sleep apnea- hypopnea syndrome and returned today for CPAP therapy three month follow-up. Sleep Study - Results Prior sleep studies: Yes Year and Where: 2016 - [facility] Compliance Data - Data Reviewed with Patient Average duration of nightly device use: 6 hours 3 minutes Compliance rate %: 46.7 Current pressure setting (cmH2O): 11-15 Humidity settin Heated hose settin Average residual AHI: 4.2 Average large leak: 9 minutes 46 seconds Subjective Missed days of use due to: reports: other (not sleeping) Patient concerns: reports: other (older Dreamstation not working; now has Dreamstation 2 x 1 week). denies: aerophagia, mask discomfort, air blowing in eyes, mask leak noise, condensation in mask/hose, nasal congestion, dry mouth, nose, throat, epistaxis Observed to snore while using device: No Current pressure setting perceived as: comfortable On therapy, patient: reports: sleeping better, awakening more refreshed, being more awake and alert during the day, more rested overall. denies: drowsiness while driving Initial [place] Sleepiness Scale score: 13 (in 2017) Current [place] Sleepiness Scale score: 10 Allergies and Home Medications Home medication list reviewed: Yes (Mirtazepine started 4 months ago for night palm) Allergy and home medication list: Allergies acetaminophen [From Vicodin] Adverse Reaction (Verified 03/10/19 19:20) Hallucinations hydrocodone bitartrate * [From Vicodin] Adverse Reaction (Verified 03/10/19 19:20) Hallucinations New medications: Prazosin 2 mg Mirtazepine 60 mg Review of Systems Review of systems same as previous: Yes (no changes) Physical Exam Vital signs obtained and entered by: Jaime SENIOR CMA AASHAY Blood Pressure: 128/80 (RIGHT, PULSE 100, RESP 18,) Cuff size: wrist Heart Rate: 101 O2 Saturation: 99 (PAPER) Height: 6 ft 1 in Weight: 260 lb Body Mass Index: 34.2 BMI Classification: Obese Impression and Plan 1. Obstructive Sleep Apnea-Hypopnea Syndrome, severe, with poor treatment compliance and good apnea control. On CPAP therapy, the patient has better sleep quality and is more rested overall. Patient received a DreamStation 2 from [employer] to replace his DreamStation on the recall. He has only had this for about a week but he states that it is working well, much better than his old device. Patient states now his new CPAP is working well he feels he will be able to increase his compliance. In the last 2 weeks he has increased his compliance to about 57%. Compliance guidelines reviewed for insurance coverage. Patient was counseled on the difference between meeting compliance and optimal use of CPAP. Optimal use of CPAP is use of CPAP with all sleep to obtain maximum benefit of treatment. Patient is encouraged to use CPAP with all sleep. I will have him follow-up in about 3 months to recheck his compliance to see how well he has been doing. Patient voiced understanding and agreement with plan. Patient's apnea severity and rationale for treatment to reduce apnea, improve sleep quality and reduce cardiovascular and cerebrovascular events was reviewed. 2. Obesity, unspecified. Currently patients BMI is 34.2. Obesity increases the risk of apnea, CPAP pressure requirements and overall health risks especially cardiovascular and diabetes. Thus patient is advised to try to lose weight. Weight loss can be done with reducing portion size, reducing refined foods and balancing content with vegetables, fruit and whole grain foods. In addition, patient encouraged to get regular exercise. * Continue auto CPAP pressure at 11-15 cmH2O * Notify me if snoring with mask or feeling that the pressure is too much or too little * Attempt to lose weight * Call this office if any problems using CPAP * Return for follow up in 3 months, or sooner if concerns arise Counseling Topics: Spare mask, Weight loss health impact Visit Type: In Office Time Spent with Patient (minutes): 25 Provider Statement: I spent 100% of the Face to Face Visit with the patient with greater than 50% spent counseling the patient and coordination of care.
[2022-02-03 10:01] VITALS: BP 128/80
== END 2022-02-03 09:17 | disposition home or self-care (01) ==
LOC: SC 09:16
PROVIDERS: ATTEND Nurse Practitioner Family
DX: G47.33 Obstructive sleep apnea (adult) (pediatric) (principal); E66.9 Obesity, unspecified; Z68.34 Body mass index [BMI] 34.0-34.9, adult
CPT/HCPCS: 99213; G0463; 99212

== ENCOUNTER 2022-03-10 16:01 | Outpatient (CLI) | payer MEDICARE, MEDICAID | END 2022-03-10 16:02 | disposition home or self-care (01) | LOC: LAB 16:01 | PROVIDERS: ATTEND Physician Assistant | DX: R60.0 Localized edema (principal) | CPT/HCPCS: 36415; 85379 ==

== ENCOUNTER 2022-03-26 06:00 | Outpatient (CLI) | payer MEDICARE, MEDICAID ==
--- NOTE | 2022-03-26 14:09 | XRAY Report ---
PROCEDURE: Knee 4 View LT INDICATIONS: LEFT KNEE PAIN TECHNIQUE: 4 views of the left knee(s) were acquired. COMPARISON: None. FINDINGS: Bones: Partially visualized left femur and left tibia intramedullary rods with proximal interlocking screws noted. No acute fractures or dislocations. No suspicious bony lesions. Large bony excrescenc es involving the lateral margin of the distal femur in the anterior margin of the proximal tibia. Mil d left knee tricompartmental osteoarthritis. Soft tissues: No joint effusion. No suspicious soft tissue calcifications. IMPRESSION: 1. Postsurgical changes. 2. Large distal femur and proximal tibia irregular osseous excrescences. Reviewed by: Emelia Owens MD, PhD on 03/26/2022 2:07 PM PDT Approved by: Emelia Owens MD, PhD on 03/26/2022 2:07 PM PDT Station ID: [id number]
== END 2022-03-26 23:59 | disposition home or self-care (01) ==
LOC: DI.WOS 06:00
PROVIDERS: ATTEND Physician Assistant
DX: M25.562 Pain in left knee (principal); R93.6 Abnormal findings on diagnostic imaging of limbs; Z98.890 Other specified postprocedural states

== ENCOUNTER 2022-04-30 08:56 | Outpatient (CLI) | payer MEDICARE, MEDICAID ==
[2022-04-30 09:51] VITALS: BP 112/48
--- NOTE | 2022-04-30 09:51 | SLEEP CARE CONSULTATION ---
Information from patient questionnaire entered by Pooja Rosario MA. I have reviewed and concur with the information entered by Pooja Rosario MA. This document represents the service I personally performed and the decisions made by , Talisha Oneill ARNP. History of Present Illness Service Date and Time: 04/30/2022 0856 Previous diagnosis: Severe, Obstructive Sleep Apnea-Hypopnea Syndrome AHI: 33.3 (in 2017) Reason for follow up: three month Equipment type: CPAP Equipment obtained from: [employer] (not able to get right supplies due to shortage, but does get some) Mask style: Nasal pillows (N30 mask but prefers the Nuance) Backup mask available: Yes (old mask) Last cushion change: 2-3 weeks Prior sleep studies: Yes Year and Where: 2016 - [facility] Type of Sleep Study: Home sleep study HPI additional information: ALEJANDRA DON was diagnosed to have severe, AHI 33.3, obstructive sleep apnea- hypopnea syndrome and returned today for CPAP therapy three month follow-up. Sleep Study - Results Type of Sleep Study: Home sleep study Prior sleep studies: Yes Year and Where: 2016 - [facility] Compliance Data - Data Reviewed with Patient Average duration of nightly device use: 5 HOURS 42 MINUTES Compliance rate %: 60 (01/28/2022-04/27/2022) Current pressure setting (cmH2O): 11-15 Humidity settin Heated hose setting: OFF Average residual AHI: 4.5 Average large leak: 15 SECONDS Compliance data discussion: He had a broken hose and so he was not able use machine. He got a replacement but it was defective and they were out of stock. He is not using an old hose that is heated hose but does not clean up well. This has affected his use of the CPAP. Subjective Missed days of use due to: reports: other (NOT GETTING SUPPLIES FROM [employer]. ) Patient concerns: reports: air blowing in eyes, condensation in mask/hose. denies: aerophagia, mask discomfort, mask leak noise, nasal congestion, dry mouth, nose, throat, epistaxis, other Observed to snore while using device: No Current pressure setting perceived as: comfortable On therapy, patient: reports: sleeping better, being more awake and alert during the day, more rested overall. denies: drowsiness while driving Initial [place] Sleepiness Scale score: 13 (in 2017) Current [place] Sleepiness Scale score: 12 (04/30/2022) Allergies and Home Medications Home medication list reviewed: Yes (Viibrit for depression) Allergy and home medication list: Allergies acetaminophen [From Vicodin] Adverse Reaction (Verified 03/10/19 19:20) Hallucinations hydrocodone bitartrate * [From Vicodin] Adverse Reaction (Verified 03/10/19 19:20) Hallucinations Review of Systems Review of systems same as previous: Yes (no changes) Physical Exam Vital signs obtained and entered by: TYLER KEITH Blood Pressure: 112/48 (RESP 18, PULSE 72, RIGHT) Cuff size: wrist Heart Rate: 70 O2 Saturation: 98 (PAPER MASK) Height: 6 ft 1 in Weight: 263 lb (CLOTHES) Weight change since last visit: 3 lb gain Body Mass Index: 34.7 BMI Classification: Obese Impression and Plan 1. Obstructive Sleep Apnea-Hypopnea Syndrome, severe, with fair treatment compliance and good apnea control. On CPAP therapy, the patient has better sleep quality and is more rested overall. Patient was not very happy today because he has been trying to get a new heated hose from his DME [employer], but not having any luck. He received hose but it was defective and he was unable to plug it into his machine. He is using an old hose that is difficult to clean. The last time he talked to them they did not have any in supply but they did tell him they would send him out a hose soon as they did. He has yet to receive that. I will have my nursing officer call [employer] to see what is delaying his supplies. Patient has had more difficulty using his machine because of the hose problem and so his compliance has been affected. I will follow-up with him again in 3 months to check in to see how things are going. Patient's apnea severity and rationale for treatment to reduce apnea, improve sleep quality and reduce cardiovascular and cerebrovascular events was reviewed. 2. Obesity, unspecified. Patient has gained weight. Currently patients BMI is 34.7.Obesity increases the risk of apnea, CPAP pressure requirements and overall health risks especially cardiovascular and diabetes. Thus patient is advised to[ continue to] lose weight. Weight loss can be done with reducing portion size, reducing refined foods and balancing content with vegetables, fruit and protein. * Continue auto CPAP pressure at 11-15 cmH2O * Notify me if snoring with mask or feeling that the pressure is too much or too little * Attempt to lose weight * Call this office if any problems using CPAP * Return for follow up in 3 months, or sooner if concerns arise Counseling Topics: Spare mask, Weight loss health impact Visit Type: In Office Time Spent with Patient (minutes): 25 Provider Statement: I spent 100% of the Face to Face Visit with the patient with greater than 50% spent counseling the patient and coordination of care.
== END 2022-04-30 08:57 | disposition home or self-care (01) ==
LOC: SC 08:56
PROVIDERS: ATTEND Nurse Practitioner Family
DX: G47.33 Obstructive sleep apnea (adult) (pediatric) (principal); E66.9 Obesity, unspecified; Z68.34 Body mass index [BMI] 34.0-34.9, adult
CPT/HCPCS: 99213; G0463; 99212

== ENCOUNTER 2022-08-03 08:47 | Outpatient (CLI) | payer MEDICARE, MEDICAID ==
[2022-08-03 09:05] LABS: BASOPHILS % (AUTO) 0.5 %; EOSINOPHILS # (AUTO) 0.2 10^3/uL (0.0-0.7); EOSINOPHILS % (AUTO) 2.2 %; HGB - HEMOGLOBIN 15.4 g/dL (14.0-18.0); LYMPHOCYTES # (AUTO) 3.3 10^3/uL (1.5-3.5); LYMPHOCYTES % (AUTO) 40.8 %; MEAN CORPUSCULAR HEMOGLOBIN 31.5 pg (27.0-31.0); MEAN CORPUSCULAR HGB CONC 34.2 g/dL (32.0-36.0); MEAN PLATELET VOLUME 8.9 fL (7.4-11.4); MONOCYTES # (AUTO) 0.7 10^3/uL (0.0-1.0); MONOCYTES % (AUTO) 8.2 %; NEUTROPHILS # (AUTO) 3.8 10^3/uL (1.5-6.6); NEUTROPHILS % (AUTO) 48.1 %; PLT - PLATELET COUNT 436 10^3/uL (130-450); RED BLOOD COUNT 4.89 10^6/uL (4.70-6.10); RED CELL DISTRIBUTION WIDTH 13.2 % (12.0-15.0)
[2022-08-03 09:32] LABS: ALBUMIN 4.3 g/dL (3.2-5.5); ALBUMIN/GLOBULIN RATIO 1.1 (1.0-2.2); BILIRUBIN,TOTAL 0.9 mg/dL (0.2-1.0); CALCIUM 9.8 mg/dL (8.5-10.3); CREATININE 0.9 mg/dL (0.6-1.2); POTASSIUM 4.2 mmol/L (3.5-5.0); TOTAL PROTEIN 8.1 g/dL (6.7-8.2)
== END 2022-08-03 08:48 | disposition home or self-care (01) ==
LOC: LAB 08:47
PROVIDERS: ATTEND Physician Assistant Medical
DX: Z00.00 Encounter for general adult medical examination without abnormal findings (principal); E78.5 Hyperlipidemia, unspecified
CPT/HCPCS: 36415; 80053; 85025

== ENCOUNTER 2022-08-06 13:29 | Outpatient (CLI) | payer MEDICARE, MEDICAID ==
[2022-08-06 14:09] VITALS: BP 122/88
--- NOTE | 2022-08-06 14:09 | SLEEP CARE CONSULTATION ---
Information from patient questionnaire entered by Isidro Vasquez. I have reviewed and concur with the information entered by Isidro Vasquez. This document represents the service I personally performed and the decisions made by me, Talisha Oneill ARNP. History of Present Illness Service Date and Time: 08/06/2022 1329 Previous diagnosis: Severe, Obstructive Sleep Apnea-Hypopnea Syndrome AHI: 33.3 (in 2017) Reason for follow up: three month (3 MONTH F/U MASK ISSUES, ) Equipment type: CPAP Equipment obtained from: [email or web address] (issues with getting bills) Mask style: Nasal pillows (N30 mask but prefers the Nuance) Backup mask available: Yes (old mask) Prior sleep studies: Yes Year and Where: 2016 - light Sleep Type of Sleep Study: Home sleep study HPI additional information: ALEJANDRA DON was diagnosed to have severe, AHI 33.3, obstructive sleep apnea- hypopnea syndrome and returned today for CPAP therapy three month follow-up. Sleep Study - Results Type of Sleep Study: Home sleep study Prior sleep studies: Yes Year and Where: 2016 - light Sleep CPAP Compliance Data - Data Reviewed with Patient Average duration of nightly device use: 6 HOURS, 58 MINUTES, 34 SECONDS Compliance rate %: 61.1 (05/05/22 TO 08/02/22; 57/90 days used; 90% / days used (last 30 days)) Current pressure setting (cmH2O): 12-15 Average residual AHI: 3.6 Average large leak: 1 mins 3 secs Subjective Patient concerns: reports: mask discomfort, air blowing in eyes, mask leak noise, condensation in mask/hose. denies: aerophagia, nasal congestion, dry mouth, nose, throat, epistaxis Observed to snore while using device: No Current pressure setting perceived as: comfortable On therapy, patient: reports: sleeping better, awakening more refreshed, being more awake and alert during the day, more rested overall. denies: drowsiness while driving Initial [place] Sleepiness Scale score: 13 (in 2017) Current [place] Sleepiness Scale score: 6 (08/06/22) Allergies and Home Medications Home medication list reviewed: Yes (no changes) Allergy and home medication list: Allergies acetaminophen [From Vicodin] Adverse Reaction (Verified 03/10/19 19:20) Hallucinations hydrocodone bitartrate * [From Vicodin] Adverse Reaction (Verified 03/10/19 19:20) Hallucinations Review of Systems Review of systems same as previous: Yes (no changes) Physical Exam Vital signs obtained and entered by: Virgilio VASQUEZ MA Blood Pressure: 122/88 (left arm ) Cuff size: regular Heart Rate: 96 O2 Saturation: 98 Height: 6 ft 1 in Weight: 269 lb Body Mass Index: 35.4 BMI Classification: Obese Impression and Plan 1. Obstructive Sleep Apnea-Hypopnea Syndrome, severe, with good treatment compliance and good apnea control. On CPAP therapy, the patient has better sleep quality and is more rested overall. He is 90% compliant in last 30 days with 27/30 days used. Patient would like to switch back to months nasal mask. He states in the last couple of weeks the N 30 has not been working well for him. I will update his prescription to let them know he is currently compliant. He is to contact them at billing issues. He may have been receiving bills because he has not been compliant for a long time. He voiced understanding and a greement. Patient's apnea severity and rationale for treatment to reduce apnea, improve sleep quality and reduce cardiovascular and cerebrovascular events was reviewed. I also reviewed the benefit of consistent device use of CPAP for depression. 2. Obesity, unspecified. Currently patients BMI is 35.4. Obesity increases the risk of apnea, CPAP pressure requirements and overall health risks especially cardiovascular and diabetes. Thus patient is advised to lose weight. * Continue auto CPAP pressure at 12-15 cmH2O * Try a Nuance nasal mask * Notify me if snoring with mask or feeling that the pressure is too much or too little * Attempt to lose weight * Call this office if any problems using CPAP * Return for follow up in 1 year, or sooner if concerns arise Counseling Topics: Spare mask, Weight loss health impact Visit Type: In Office Time Spent with Patient (minutes): 24 Provider Statement: I spent 100% of the Face to Face Visit with the patient with greater than 50% spent counseling the patient and coordination of care.
== END 2022-08-06 13:30 | disposition home or self-care (01) ==
LOC: SC 13:29
PROVIDERS: ATTEND Nurse Practitioner Family
DX: G47.33 Obstructive sleep apnea (adult) (pediatric) (principal); E66.9 Obesity, unspecified; Z68.35 Body mass index [BMI] 35.0-35.9, adult
CPT/HCPCS: 99213; G0463; 99212

== ENCOUNTER 2022-08-09 15:01 | Outpatient (CLI) | payer MEDICARE, MEDICAID ==
[2022-08-09 20:06] LABS: ESTIMATED AVERAGE GLUCOSE 111 mg/dL (70-100); HEMOGLOBIN A1c% 5.5 % (4.27-6.07)
== END 2022-08-09 15:02 | disposition home or self-care (01) ==
LOC: LAB 15:01
PROVIDERS: ATTEND Physician Assistant Medical
DX: G40.909 Epilepsy, unspecified, not intractable, without status epilepticus (principal); R73.03 Prediabetes
CPT/HCPCS: 36415; 80175; 83036

== ENCOUNTER 2023-06-14 10:40 | Emergency (ER) | payer MEDICARE, MEDICAID ==
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
--- NOTE | 2023-06-14 12:29 | XRAY Report ---
PROCEDURE: Chest 1 View X-Ray INDICATIONS: chest pain TECHNIQUE: One view of the chest was acquired. COMPARISON: None. FINDINGS: Surgical changes and devices: None. Lungs and pleura: No pleural effusions or pneumothorax. Lungs are clear. Mediastinum: Mediastinal contours appear normal. Heart size is normal. Bones and chest wall: No suspicious bony lesions. Overlying soft tissues appear unremarkable. IMPRESSION: No acute cardiopulmonary process. Reviewed by: Giovany Mcconnell MD on 06/14/2023 12:28 PM PDT Approved by: Giovany Mcconnell MD on 06/14/2023 12:28 PM PDT Station ID: [id number]
[2023-06-14] MEDS ORDERED: oxyCODONE 5 MG TABLET PO STA (14:58)
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
[2023-06-14 16:14] VITALS: BP 128/70
== END 2023-06-14 16:06 | disposition home or self-care (01) ==
LOC: ED 10:40
DX: M19.011 Primary osteoarthritis, right shoulder (principal)
CPT/HCPCS: 71045; 72125; 73030; 99283; 99284; A9270

== ENCOUNTER 2024-08-08 15:25 | Emergency (ER) | payer OTHER, MEDICARE, MEDICAID ==
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
[2024-08-08 15:46] VITALS: O2SAT 100
[2024-08-08 16:21] LABS: CALCIUM 9.5 mg/dL (8.5-10.3); CREATININE 0.9 mg/dL (0.6-1.3); POTASSIUM 4.1 mmol/L (3.5-4.5)
[2024-08-08] MEDS ORDERED: iohexoL-300 100 ML VIAL ONE (16:28)
[2024-08-08] MEDS: HYDROmorphone 0.5 MG/0.5 ML SYRINGE IVP STA (16:50)
[2024-08-08] MEDS: KETOROLAC 15 MG/ML VIAL IVP STA (16:53)
[2024-08-08] MEDS: iohexoL-300 100 ML VIAL IVP ONE (17:15)
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
[2024-08-08] MEDS: ACETAMINOPHEN 500 MG TABLET PO STA (18:02)
[2024-08-08] MEDS: HYDROmorphone 1 MG/ML CARPUJECT IVP STA (18:03)
[2024-08-08 18:20] VITALS: BP 130/88
== END 2024-08-08 18:16 | disposition home or self-care (01) ==
LOC: EDUNIT# → ED 15:25
DX: S29.012A Strain of muscle and tendon of back wall of thorax, initial encounter (principal); T14.8XXA Other injury of unspecified body region, initial encounter; V43.52XA Car driver injured in collision with other type car in traffic accident, initial encounter; Y93.89 Activity, other specified; Y92.410 Unspecified street and highway as the place of occurrence of the external cause
CPT/HCPCS: 36415; 70450; 71260; 72125; 74177; 80048; 96374; 96375; 96376; 99284; A9270; J1170; Q9967